=== PATIENT | male | born 1930 | race Caucasian/White ===

== ENCOUNTER 2018-12-25 23:38 | Emergency (ER) | payer OTHER ==
[2018-12-26 00:21] LABS: Absolute Lymphocytes (CBC) 0.3 K/uL (0.7-4.9); Absolute Monocytes 0.7 K/uL (0.1-1.3); Absolute Neutrophil 5.2 K/uL (1.8-8.0); Basophils % 0.3 % (0-1.3); Eosinophils % 0.1 % (0-4.4); Hematocrit 42.4 % (39.6-49.0); MPV 9.1 fL (7.6-11.3); Monocytes % 10.8 % (3.3-12.3)
[2018-12-26 00:22] LABS: Protime INR 1.63
[2018-12-26 00:29] LABS: Potassium 3.8 mmol/L (3.5-5.1)
[2018-12-26 00:32] LABS: Albumin 3.7 g/dL (3.4-5.0); Magnesium 2.1 mg/dL (1.8-2.4)
[2018-12-26 00:35] LABS: Bilirubin Direct 0.4 mg/dL (0-0.2)
[2018-12-26 00:37] LABS: Protein, Total 8.1 g/dL (6.4-8.2)
[2018-12-26 00:40] LABS: Troponin (Emerg Dept Use Only) 0.03 ng/mL (0.0-0.045)
--- NOTE | 2018-12-26 01:24 | EDPHYS ---
Physician Documentation [facility] Name: Maninder Winkler Age: 88 yrs Sex: Male : 1930 Arrival Date: 12/25/2018 Time: 23:43 Bed 15 Private MD: Nataly Moe F ED Physician Keon Kerr HPI: 12/26 00:24 This 88 yrs old Male presents to ER via EMS with complaints of Non-Productive cp Cough. 00:25 The patient or guardian reports cough, that is intermittent, with no sputum. cp 00:25 Onset: The symptoms/episode began/occurred 2 day(s) ago. Severity of symptoms: in the emergency department the symptoms are unchanged, despite home interventions. Associated signs and symptoms: Pertinent negatives: chest pain, fever, sore throat, vomiting. Historical: - Allergies: 12/25 23:49 PENICILLINS; bb - Home Meds: 23:49 furosemide 80 mg Oral tab 1 tab once daily [Active]; glimepiride 1 mg oral tab 0.5 tab bb once daily [Active]; simvastatin 10 mg oral tab 1 tab once daily [Active]; warfarin 3 mg oral tab 1 tab once daily [Active]; Clindamycin Oral [Active]; fenofibrate oral oral [Active]; tramadol 50 mg Oral tab 1 tab every 6 hours [Active]; Delsym cough medicine [Active]; - PMHx: 23:49 Diabetes - NIDDM; Hyperlipidemia; Hypertension; bb - Immunization history:: Adult Immunizations up to date, Flu vaccine is up to date. - Social history:: Smoking status: Patient/guardian denies using tobacco. - Ebola Screening: : No symptoms or risks identified at this time. ROS: 12/26 00:30 Constitutional: Negative for body aches, chills, fever, poor PO intake. cp 00:30 Eyes: Negative for injury, pain, redness, and discharge. cp 00:30 ENT: Negative for drainage from ear(s), ear pain, sore throat, difficulty swallowing, difficulty handling secretions. 00:30 Cardiovascular: Positive for edema, Negative for chest pain, palpitations. 00:30 Respiratory: Positive for cough, "sounds productive", Negative for shortness of breath, wheezing. 00:30 Abdomen/GI: Negative for abdominal pain, nausea, vomiting, and diarrhea, black/tarry stool, rectal bleeding. 00:30 Back: Negative for radiated pain. 00:30 Skin: Negative for cellulitis, rash. 00:30 Neuro: Negative for altered mental status, dizziness, headache, syncope, near syncope, weakness. 00:30 All other systems are negative. Exam: 00:24 ECG was reviewed by the Attending Physician. cp 00:35 Constitutional: The patient appears in no acute distress, alert, awake, cp non-diaphoretic, non-toxic, well developed, well nourished. 00:35 Head/Face: Normocephalic, atraumatic. cp 00:35 Eyes: Periorbital structures: appear normal, Conjunctiva: normal, no exudate, no cp injection, Sclera: no appreciated abnormality, Lids and lashes: appear normal, bilaterally. 00:35 ENT: External ear(s): are unremarkable, Ear canal(s): are normal, clear, TM's: bulging, cp is not appreciated, bilaterally, dullness, bilaterally, erythema, is not appreciated, bilaterally, Nose: is normal, Mouth: Lips: moist, Oral mucosa: pink and intact, moist, Posterior pharynx: Airway: no evidence of obstruction, patent, Tonsils: are normal in appearance, swelling, is not appreciated, erythema, is not appreciated, exudate, is not appreciated. 00:35 Neck: ROM/movement: is normal, is supple, without pain, no range of motions limitations, no nuchal rigidity. 00:35 Chest/axilla: Inspection: normal, Palpation: is normal, no crepitus, no tenderness. 00:35 Cardiovascular: Rate: normal, Rhythm: irregular, Edema: ankle edema, that is moderate, JVD: is not appreciated. 00:35 Respiratory: the patient does not display signs of respiratory distress, Respirations: normal, no use of accessory muscles, no retractions, no splinting, no tachypnea, labored breathing, is not present, Breath sounds: rales, that are mild, are heard diffusely, stridor, is not appreciated, wheezing: is not appreciated. 00:35 Abdomen/GI: Inspection: abdomen appears normal, Bowel sounds: active, all quadrants, Palpation: abdomen is soft and non-tender, in all quadrants. 00:35 Back: pain, is absent, ROM is normal. 00:35 Neuro: Orientation: to person, place \\T\\ time. Mentation: is normal, Motor: moves all fours, strength is normal, Sensation: is normal. Vital Signs: 12/25 23:49 BP 146 / 91; Pulse 96; Resp 18 S; Temp 98.4(O); Pulse Ox 94% on R/A; Weight 77.11 kg bb (R); Height 5 ft. 3 in. (160.02 cm) (R); Pain 0/10; 12/26 00:35 Pulse Ox 94% on R/A; cp 00:36 BP 119 / 76; Pulse 82; Resp 18; Pulse Ox 93% on R/A; ea 02:30 BP 133 / 79; Pulse 74; Resp 18; Pulse Ox 95% on R/A; ea 04:30 BP 130 / 76; Pulse 83; Resp 18; Pulse Ox 100% ; ea 12/25 23:49 Body Mass Index 30.11 (77.11 kg, 160.02 cm) bb MDM: 12/25 23:51 Patient medically screened. 12/26 01:05 Data reviewed: vital signs, nurses notes, lab test result(s), EKG, radiologic studies, cp plain films. 01:05 Test interpretation: by ED physician or midlevel provider: ECG, plain radiologic cp studies. 12/25 23:48 Order name: Basic Metabolic Panel; Complete Time: 01:02 cp 12/26 01:02 Interpretation: Normal except: BUN 28; CRE 1.55; GFR 42. cp 12/25 23:48 Order name: CBC with Diff; Complete Time: 01:02 cp 12/26 01:02 Interpretation: Normal except: JEAN CLAUDE% 83.8; LYM% 5.0; LYMA 0.3. cp 12/25 23:48 Order name: LFT's; Complete Time: 01:02 cp 12/26 01:02 Interpretation: Normal except: BILID 0.4; GLOB 4.4; A/G 0.8. cp 12/25 23:48 Order name: Magnesium; Complete Time: 01:02 cp 12/25 23:48 Order name: NT PRO-BNP; Complete Time: 01:02 cp 12/26 01:03 Interpretation: Abnormal: NT PRO-BNP 1259. cp 12/25 23:48 Order name: PT-INR; Complete Time: 01:02 cp 12/25 23:48 Order name: Troponin (emerg Dept Use Only); Complete Time: 01:02 cp 12/26 01:03 Interpretation: Within normal limits: TROPED 0.03. cp 12/25 23:48 Order name: Cardiac monitoring; Complete Time: 23:54 cp 12/25 23:48 Order name: EKG - Nurse/Tech; Complete Time: 00:19 cp 12/25 23:48 Order name: Influenza Screen (a \\T\\ B); Complete Time: 01:02 cp 12/26 01:03 Interpretation: Reviewed. cp 12/25 23:52 Order name: XRAY Chest (1 view) cp 12/25 23:48 Order name: IV Saline Lock; Complete Time: 00:07 cp 12/25 23:48 Order name: Labs collected and sent; Complete Time: 00:07 cp 12/25 23:48 Order name: O2 Per Protocol; Complete Time: 23:54 cp 12/25 23:48 Order name: O2 Sat Monitoring; Complete Time: 23:54 cp EC:24 Rate is 98 beats/min. Rhythm is irregular. QRS interval is prolonged at 146 msec. QT cp interval is normal. T waves are Inverted in leads I, aVL. Interpreted by me. Reviewed by me. Administered Medications: 01:10 CANCELLED (Physician Discretion): Lasix 20 mg IVP once cp 01:26 Drug: Lasix 40 mg Route: IVP; Site: right antecubital; ea 02:00 Follow up: Response: No adverse reaction ea Disposition: 12/26/18 01:23 Discharged to Home. Impression: Cough, Unspecified combined systolic (congestive) and diastolic (congestive) heart failure. - Condition is Stable. - Discharge Instructions: Heart Failure, Cough, Adult. - Prescriptions for Tessalon Perles 100 mg Oral Capsule - take 1 capsule by ORAL route every 8 hours As needed; 15 capsule. - Medication Reconciliation Form, Thank You Letter, Antibiotic Education, Prescription Opioid Use form. - Follow up: Nataly Moe MD; When: 2 - 3 days; Reason: Recheck today's complaints. - Problem is new. - Symptoms have improved. Signatures: Dispatcher [employer] EDLynda Barrett RN RN bb Jet Rangel PA PA cp Antunez, Elena, RN RN Bebo Schuster, RN RN bp Corrections: (The following items were deleted from the chart) 01:02 01:02 Normal except: JEAN CLAUDE% 83.8; LYM% 5.0. cp cp 01:10 01:05 Lasix 20 mg IVP once ordered. cp cp 10:30 01:23 12/26/2018 01:23 Discharged to Home. Impression: Cough; Unspecified combined bp systolic (congestive) and diastolic (congestive) heart failure. Condition is Stable. Forms are Medication Reconciliation Form, Thank You Letter, Antibiotic Education, Prescription Opioid Use. Follow up: Nataly Moe; When: 2 - 3 days; Reason: Recheck today's complaints. Problem is new. Symptoms have improved. cp
--- NOTE | 2018-12-26 01:24 | ER ---
Nurse's Notes [facility] Name: Maninder Winkler Age: 88 yrs Sex: Male : 1930 Arrival Date: 12/25/2018 Time: 23:43 Bed 15 Private MD: Nataly Moe F Diagnosis: Cough;Unspecified combined systolic (congestive) and diastolic (congestive) heart failure Presentation: 12/25 23:43 Presenting complaint: EMS states: they were toned our for report of pt having a cough bb for 2 or 3 days cough is non-productive and pt states "I feel like something is going on in there " indicating the chest area pt denies pain. Transition of care: patient was not received from another setting of care. Onset of symptoms was December 22, 2018. Risk Assessment: Do you want to hurt yourself or someone else? Patient reports no desire to harm self or others. Initial Sepsis Screen: Does the patient meet any 2 criteria? No. Patient's initial sepsis screen is negative. Does the patient have a suspected source of infection? No. Patient's initial sepsis screen is negative. Care prior to arrival: Glucose check: 128. 23:43 Method Of Arrival: EMS: [facility] bb 23:43 Acuity: MEMO 3 bb Historical: - Allergies: 23:49 PENICILLINS; bb - Home Meds: 23:49 furosemide 80 mg Oral tab 1 tab once daily [Active]; glimepiride 1 mg oral tab 0.5 tab bb once daily [Active]; simvastatin 10 mg oral tab 1 tab once daily [Active]; warfarin 3 mg oral tab 1 tab once daily [Active]; Clindamycin Oral [Active]; fenofibrate oral oral [Active]; tramadol 50 mg Oral tab 1 tab every 6 hours [Active]; Delsym cough medicine [Active]; - PMHx: 23:49 Diabetes - NIDDM; Hyperlipidemia; Hypertension; bb - Immunization history:: Adult Immunizations up to date, Flu vaccine is up to date. - Social history:: Smoking status: Patient/guardian denies using tobacco. - Ebola Screening: : No symptoms or risks identified at this time. Screenin:53 Abuse screen: Denies threats or abuse. Nutritional screening: No deficits noted. ea Tuberculosis screening: No symptoms or risk factors identified. Fall Risk None identified. Assessment: 23:46 General: Appears in no apparent distress. Behavior is calm, cooperative, appropriate ea for age. Pain: Denies pain. Neuro: Level of Consciousness is awake, alert, obeys commands, Oriented to person, place, time, situation. Cardiovascular: Patient's skin is warm and dry. Respiratory: Airway is patent Respiratory effort is even, unlabored, Respiratory pattern is regular, symmetrical, Breath sounds are coarse bilaterally. Breath sounds with wheezes bilaterally. Respiratory: Parent/caregiver reports the patient having cough that is hacking. GI: No signs and/or symptoms were reported involving the gastrointestinal system. Derm: Skin is pink, warm \\T\\ dry. 12/26 00:50 Reassessment: Patient and/or family updated on plan of care and expected duration. Pain ea level reassessed. Patient is alert, oriented x 3, equal unlabored respirations, skin warm/dry/pink. 01:34 Reassessment: Attempted to notify next of kin Cotl Winkler , that pt is up ea for discharge and is in need of a ride home, unable to contact left message, awaiting electrophysiology nurse practitioner back. Attempted to call pt's daughter Isis Winkler , recipients mail box full unable to leave message. 02:45 Reassessment: Patient and/or family updated on plan of care and expected duration. Pain ea level reassessed. Pt resting with eyes closed, respirations even and unlabored. Awaiting non call back form son. 03:30 Reassessment: Patient and/or family updated on plan of care and expected duration. Pain ea level reassessed. Pt resting with eyes closed, respirations even and unlabored, chest expansions even and symmetrical. Reassessment: Patient and/or family updated on plan of care and expected duration. Pain level reassessed. Pt resting with eyes closed, respirations even and unlabored, chest expansions even and symmetrical. No s/s of pain or discomfort noted at this time awaiting on son to return call. 04:50 Reassessment: Patient and/or family updated on plan of care and expected duration. Pain ea level reassessed. Patient is alert, oriented x 3, equal unlabored respirations, skin warm/dry/pink. 05:50 Reassessment: Patient and/or family updated on plan of care and expected duration. Pain ea level reassessed. Pt resting with eyes closed, respirations even and unlabored. Chest expansions even and symmetrical. No s/s of pain or discomfort noted at this time. 06:36 Reassessment: Patient and/or family updated on plan of care and expected duration. Pain ea level reassessed. Patient is alert, oriented x 3, equal unlabored respirations, skin warm/dry/pink. Attempted to call son, message left, awaiting electrophysiology nurse practitioner back. 07:00 Reassessment: RECD REPORT FROM JANEEN HEARD. PT D/C ON PREVIOUS SHIFT. AWAITING FAMILY bp CONTACT FOR TRANSPORT HOME. 09:30 Reassessment: CONTACT WITH FAMILY, SON EN ROUTE FOR TRANSPORT HOME. bp 10:29 Reassessment: FAMILY AT B/S, PT D/C HOME. bp Vital Signs: 12/25 23:49 BP 146 / 91; Pulse 96; Resp 18 S; Temp 98.4(O); Pulse Ox 94% on R/A; Weight 77.11 kg bb (R); Height 5 ft. 3 in. (160.02 cm) (R); Pain 0/10; 12/26 00:35 Pulse Ox 94% on R/A; cp 00:36 BP 119 / 76; Pulse 82; Resp 18; Pulse Ox 93% on R/A; ea 02:30 BP 133 / 79; Pulse 74; Resp 18; Pulse Ox 95% on R/A; ea 04:30 BP 130 / 76; Pulse 83; Resp 18; Pulse Ox 100% ; ea 12/25 23:49 Body Mass Index 30.11 (77.11 kg, 160.02 cm) bb ED Course: 12/25 23:43 Patient arrived in ED. bb 23:44 Janeen Hawkins, RN is Primary Nurse. ea 23:45 Triage completed. bb 23:47 Jet Rangel PA is PHCP. cp 23:47 Keon Kerr MD is Attending Physician. cp 23:49 Arm band placed on Patient placed in an exam room, on a stretcher, on pulse oximetry. bb 23:53 Patient has correct armband on for positive identification. Placed in gown. Bed in low ea position. Side rails up X2. 12/26 00:09 X-ray completed. Portable x-ray completed in exam room. Patient tolerated procedure kw well. 00:09 Initial lab(s) drawn, by me, sent to lab. Inserted saline lock: 22 gauge in right lt1 antecubital area, using aseptic technique. 00:13 XRAY Chest (1 view) In Process Unspecified. EDMS 01:23 Nataly Moe MD is Private Physician. cp 01:23 Nataly Moe MD is Referral Physician. cp 03:00 No provider procedures requiring assistance completed. ea 07:25 Report given to Bebo HEARD. ea 09:48 IV discontinued, intact, bleeding controlled, No redness/swelling at site. Pressure bp dressing applied. Administered Medications: 01:10 CANCELLED (Physician Discretion): Lasix 20 mg IVP once cp 01:26 Drug: Lasix 40 mg Route: IVP; Site: right antecubital; ea 02:00 Follow up: Response: No adverse reaction ea Outcome: 01:23 Discharge ordered by . cp 10:30 Patient left the ED. bp Signatures: Dispatcher [employer] EDMS Lynda Cevallos RN RN Brianda Richardson Corey, INA PA Janeen Ybarra RN RN ea Peltier, Brian, RN FÉLIX Duarte, Maryam lt1
[2018-12-26] MEDS ORDERED: FUROSEMIDE 40 MG/4 ML VIAL ONE (01:34)
--- NOTE | 2018-12-26 08:07 | RAD REPORT ---
EXAM DESCRIPTION: Miguelito Single View12/26/2018 12:10 am CLINICAL HISTORY: Cough COMPARISON: 2014 FINDINGS: Mild bilateral pulmonary opacities. The heart is moderately enlarged. Postsurgical changes involve the chest. IMPRESSION: These findings probably represent mild CHF
== END 2018-12-26 10:30 | disposition home or self-care (01) ==
LOC: ER 23:38
DX: I50.40 Unspecified combined systolic (congestive) and diastolic (congestive) heart failure (principal); R05 Cough; E11.9 Type 2 diabetes mellitus without complications; E78.5 Hyperlipidemia, unspecified; I10 Essential (primary) hypertension
CPT/HCPCS: 85025; 80048; 36415; 83735; 85610; 80076; 84484; 83880; 87804 ×2; 71045; 96374; 99284; J1940